=== PATIENT | male | born 1950 | race Caucasian/White ===

== ENCOUNTER → 2018-03-06 | Day surgery (SDC) | payer MEDICARE, BC ==
[2018-03-05 11:51] LABS: BASOPHILS % 0.1 % (0.0-1.0); HEMATOCRIT 42.4 % (38.2-49.6); HEMOGLOBIN 14.2 g/dL (14.0-18.0); LYMPHOCYTES # (AUTO) 0.5 (1.0-3.2); LYMPHOCYTES % 3.1 % (18.0-39.1); MEAN CORPUSCULAR HEMOGLOBIN 30.3 pg (28-32); MEAN CORPUSCULAR HGB CONC 33.5 g/dL (31-35); MEAN CORPUSCULAR VOLUME 90.4 fL (81-99); MONOCYTES # (AUTO) 0.7 (0.2-0.8); MONOCYTES % 3.9 % (4.4-11.3); NEUTROPHILS # (AUTO) 15.7 (2.1-6.9); NEUTROPHILS % 92.4 % (38.7-80.0); PLATELET COUNT 361 x10e3/uL (140-360); RED BLOOD COUNT 4.69 x10e6/uL (4.3-5.7); RED CELL DISTRIBUTION WIDTH 13.9 % (11.7-14.4)
[2018-03-05 12:08] LABS: ALBUMIN 3.7 g/dL (3.5-5.0); ANION GAP 17.4 mmol/L (8-16); CHOL/HDL RATIO 3.5 (3.9-4.7); CREATININE, SERUM 1.23 mg/dL (0.72-1.25); POTASSIUM 4.4 mmol/L (3.5-5.1)
[2018-03-05 12:13] LABS: PROTHROMBIN TIME 14.1 seconds (11.9-14.5)
[2018-03-05 12:14] LABS: PARTIAL THROMBOPLASTIN TIME 28.1 seconds (23.8-35.5)
[2018-03-06] VITALS (12 sets, daily range): BP systolic 115–145; BP diastolic 70–85
[~2018-03-06] VITALS: Ht 167.6 cm; Wt 98.4 kg
[~2018-03-06] MED LIST: AMLODIPINE BESYL5 MG PO; ASPIRIN 325 MG TAB ONE; ASPIRIN81 MG; DIPHENHYDRAMINE HCL 25 MG CAP ONE; FAMOTIDINE 20 MG/2 ML VIAL IV ONE; FENTANYL CITRATE/PF 100MCG/2 ML INJ ONE; GABAPENTIN300 MG PO; GLIMEPIRIDE4 MG; HEPARIN SOD (PORCINE) 1000 UNIT/ML 30ML ONE; HEPARIN SOD/SOD CHLORIDE 2,000 ML ONE; IBUPROFEN400 MG PO; IOPAMIDOL 300MG/ML 100 ML INFUS..BTL IV ONE; JANUVIA100 MG PO; LANTUS 3ML100 UNITS/; LIDOCAINE HCL 1% LOCAL INJ 20 ML VIAL ONE; LISINOPRIL10 MG PO; METFORMIN HCL500 MG PO; METHYLPREDNISOLONE SOD SUCC 125 MG/2ML VIAL ONE; MIDAZOLAM HCL 2 MG/2 ML VIAL ONE; NITROGLYCERIN/D5W 200 MCG/ML 0 ML ONE; OMEPRAZOLE40 MG; PIOGLITAZONE HC45 MG PO; SIMVASTATIN10 MG PO
--- NOTE | 2018-04-24 12:22 | Operative Report ---
DATE OF PROCEDURE: March 05, 2018 PROCEDURE PERFORMED: Peripheral angiography. PROCEDURE INDICATION: Leg discomfort, worse with exertion, concerning for claudication, with abnormal Doppler ultrasound. PROCEDURES PERFORMED 1. Abdominal aortogram. 2. Selective lower extremity angiography, bilateral. 3. Third-order catheter placement from left common femoral artery to right common femoral artery. 4. Left common femoral artery 6-Ivorian Angio-Seal closure. PROCEDURE COMPLICATIONS: None. ESTIMATED BLOOD LOSS: Less than 15 mL. PROCEDURE SUMMARY: After consent was obtained, the patient was prepped and draped in a sterile fashion. The left femoral site was locally infiltrated with 2% lidocaine. Access was obtained using micropuncture, and a 6-Ivorian sheath was placed. An Omni Flush catheter was positioned in the distal ascending abdominal aorta for angiography. Selective angiography was also performed after advancement of the catheter to the right common femoral artery position, with angiography performed to the right lower extremity. Additional selective angiography was then performed to the left lower extremity via the left common femoral artery. The following findings were noted: The left renal artery is patent. 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 Luminal irregularities are noted throughout the infrarenal abdominal aorta and iliac vessels bilaterally as well as the common femoral and profunda femoris bilaterally. The right SFA has 50% focal stenosis. The left SFA has 40% focal stenosis. The popliteal arteries have luminal irregularities bilaterally. The right anterior tibial artery has 50%, 60%, 50% tandem lesions with patent TP trunk, peroneal and posterior tibial arteries. The left anterior tibialis has luminal irregularities. The left TP trunk and left peroneal artery have luminal irregularities. The left posterior tibial artery has 50% focal stenosis. There is overall 3-vessel runoff bilaterally. CONCLUSION: Moderate peripheral artery disease. RECOMMENDATIONS: Medical aggressive therapy. Job#: [id number]
== END | disposition home or self-care (01) ==
LOC: CATH LAB 06:19
PROVIDERS: ATTEND Internal Medicine Cardiovascular Disease
DX: I70.203 Unspecified atherosclerosis of native arteries of extremities, bilateral legs (principal); I77.89 Other specified disorders of arteries and arterioles; I10 Essential (primary) hypertension; E78.5 Hyperlipidemia, unspecified; Z01.810 Encounter for preprocedural cardiovascular examination; Z01.812 Encounter for preprocedural laboratory examination; Z79.82 Long term (current) use of aspirin; Z79.4 Long term (current) use of insulin
CPT/HCPCS: 36247; 36415; 75630; 80048; 80053; 80061; 85025; 85610; 85730; 93005; C1769; J1644; J2001; J2250; J2930; Q9967